=== PATIENT | male | born 1935 | race Caucasian/White ===

== ENCOUNTER 2017-02-03 19:58 | Emergency (ER) | payer MEDICARE ==
--- NOTE | 2017-02-03 20:38 | CT ---
EXAMINATION: Noncontrast cranial CT. CLINICAL INDICATION: Frontal headache for 2 days. TECHNIQUE: A noncontrast cranial CT scan was obtained. Axial images were acquired from just above the vertex through the skull base. 4 mm stacked axial, coronal, and sagittal reconstructions were reviewed. COMPARISONS: None FINDINGS: The CSF containing spaces are prominent throughout. There is diminished attenuation within the periventricular white matter tracts bilaterally. No acute intercranial hemorrhage, mass or mass effect is identified. No extra-axial fluid collections are detected. The visualized segments of the posterior fossa are unremarkable. The cerebellar pontine angle cisterns are symmetric. The osseous structures are intact. There is mild ethmoid sinus mucosal thickening. The frontal and sphenoid sinuses appear clear. The visualized portions of the orbits are unremarkable. The mastoid sinuses are normal and symmetric. 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 There is mild ethmoid sinus disease. Otherwise no acute intracranial abnormalities are appreciated. The findings were uploaded to the electronic medical record for review at approximately 8:38 PM 02/03/2017
== END 2017-02-03 20:43 | disposition home or self-care (01) ==
LOC: ED 19:58
DX: J32.9 Chronic sinusitis, unspecified (principal)